=== PATIENT | male | born 1965 | race Caucasian/White ===

== ENCOUNTER 2020-12-14 10:49 | Emergency (ER) | payer OTHER, SELFPAY ==
--- NOTE | ~2020-12-14 | XR_ITS ---
XR elbow RT min 3V 12/14/2020 11:25 INDICATION: Right elbow pain and swelling PROCEDURE: 4 views right elbow COMPARISON: No prior studies for comparison. FINDINGS: Fracture, dislocation or subluxation is not identified. The soft tissues appear within norm al limits. No foreign bodies are identified. IMPRESSION: 1: NO ACUTE BONE OR JOINT ABNORMALITY IDENTIFIED. Reviewed, dictated and finalized at location A.
[2020-12-14 10:58] VITALS: BP 129/70; PULSE 65; RESP 16; TEMP 36.9; O2SAT 98
--- NOTE | 2020-12-14 11:56 | ED.GENADULT ---
HPI - General Adult General Chief complaint: Skin/Abscess/Foreign Body Stated complaint: elbow inf History of Present Illness HPI narrative: Patient wakes up this morning states that his right elbow was swollen painful to touch warm to touch. Patient states that he had a low-grade temperature he did take ibuprofen prior to coming. Patient informs me that temperature was 99.8 Related Data Allergies Allergy/AdvReac Type Severity Reaction Status Date / Time No Known Allergies Allergy Verified 12/14/20 11:11 Review of Systems Review of Systems: Narrative: CONSTITUTIONAL: Denies fever, chills, or sweats. EYES: Denies visual changes, redness, or discharge. ENT: Denies rhinorrhea, congestion, sore throat, or otalgia. CARDIOVASCULAR:Denies chest pain, palpitations, or edema. RESPIRATORY: Denies cough or dyspnea. GASTROINTESTINAL: Denies abdominal pain, nausea, vomiting, or diarrhea. GENITOURINARY: Denies dysuria or hematuria. SKIN:[Denies rash or itching. MUSCULOSKELETAL:Denies back pain, joint pain, or myalgia. Left elbow swelling painful NEUROLOGIC: Denies headache, numbness, or weakness. PSYCHIATRIC:Denies anxiety or depression PMFSH Comments At time as signature, I have reviewed and agree with nursing past medical, social, surgical and family history. Please see nursing chart for further information. There is no relevant family history pertinent to the presenting complaint. Exam Narrative: Exam Narrative: GENERAL:Well-appearing, well-nourished, and in no acute distress. HEAD:Normocephalic, atraumatic. EYES: PERRLA and EOMI. ENT: Nares clear, no rhinorrhea or epistaxis. Mucous membranes moist. NECK: Supple. CHEST: Clear to auscultation. No respiratory distress. HEART: Regular rate and rhythm. Normal peripheral pulses. ABDOMEN: Soft, nontender, nondistended, normal active bowel sounds. EXTREMITIES: decrased range of motion. left elbow with moderate edema and warmth SKIN: Warm, dry, no rash. NEURO: No focal deficits. Alert and oriented x3. Course Vital Signs Vital signs: Vital Signs Temperature 98.4 F 12/14/20 10:58 Pulse Rate 65 12/14/20 10:58 Respiratory Rate 16 12/14/20 10:58 Blood Pressure 129/70 12/14/20 10:58 Pulse Oximetry 98 12/14/20 10:58 Temperature 98.4 F 12/14/20 10:58 Pulse Rate 65 12/14/20 10:58 Respiratory Rate 16 12/14/20 10:58 Blood Pressure 129/70 12/14/20 10:58 Pulse Oximetry 98 12/14/20 10:58 Medical Decision Making Vital Signs Vital Signs: Vital Signs Temperature 98.4 F 12/14/20 10:58 Pulse Rate 65 12/14/20 10:58 Respiratory Rate 16 12/14/20 10:58 Blood Pressure 129/70 12/14/20 10:58 Pulse Oximetry 98 12/14/20 10:58 Temperature 98.4 F 12/14/20 10:58 Pulse Rate 65 12/14/20 10:58 Respiratory Rate 16 12/14/20 10:58 Blood Pressure 129/70 12/14/20 10:58 Pulse Oximetry 98 12/14/20 10:58 Discharge Plan Discharge Clinical Impression: Bursitis of elbow Qualifiers: Elbow bursitis location: unspecified Laterality: left Qualified Code(s): M70.32 - Other bursitis of elbow, left elbow Patient Disposition: Home, Self-Care Condition: Stable Instructions: Antibiotic Form, Elbow Bursitis (ED) Additional Instructions: Rest: Rest your elbow as much as possible to decrease pain and swelling. Slowly start to do more each day. Return to your daily activities as directed. Ice: Ice helps decrease swelling and pain. Ice may also help prevent tissue damage. Use an ice pack, or put crushed ice in a plastic bag. Cover it with a towel and place it on your elbow for 15 to 20 minutes, 3 to 4 times each day, as directed. Compress: Healthcare providers may wrap your arm with tape or an elastic bandage to decrease swelling. Loosen the elastic bandage if you start to lose feeling in your fingers. Elevate: Raise your elbow above the level of your heart as often as you can. This will help decrease swelling and pain. Prop your elbow o
== END 2020-12-14 12:12 | disposition home or self-care (01) ==
PROVIDERS: Emergency Provider Nurse Practitioner Family; PCP Internal Medicine
DX: M71.521 Other bursitis, not elsewhere classified, right elbow (principal)
CPT/HCPCS: 73080; 99213; G0463

== ENCOUNTER 2022-11-25 18:45 | Outpatient (CLI) | payer BC, SELFPAY ==
--- NOTE | ~2022-11-25 | XR_ITS ---
EXAMINATION: XR shoulder RT min 2V INDICATION: Right shoulder pain TECHNIQUE: Four views of the right shoulder are submitted. COMPARISON: None FINDINGS: Normal alignment. No fracture. 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 Soft tissues are unremarkable. IMPRESSION: 1. No acute osseous abnormality. Reviewed, dictated and finalized at location F.
--- NOTE | ~2022-11-25 | XR_ITS ---
EXAMINATION: XR chest 2V DATE: 11/25/2022 19:09 INDICATION: Right chest and shoulder pain TECHNIQUE: Frontal and lateral views of the chest are obtained COMPARISON: None available FINDINGS: The lungs are free of acute opacities. No pleural effusion or pneumothorax. The cardiomedia stinal silhouette is normal. There are bridging osteophytes at multiple levels in the spine, consiste nt with diffuse idiopathic skeletal hyperostosis (DISH). IMPRESSION: 1. No acute cardiopulmonary abnormality. Reviewed, dictated and finalized at location F.
== END 2022-11-25 18:46 | disposition home or self-care (01) ==
LOC: CHSIMG 18:49
PROVIDERS: PCP Family Medicine; Visit Provider Family Medicine
DX: M25.511 Pain in right shoulder (principal)
CPT/HCPCS: 71046; 73030

== ENCOUNTER 2022-12-01 15:59 | Outpatient (RCR) | payer BC, SELFPAY ==
--- NOTE | 2022-12-01 16:50 | PTOPEVAL1 ---
Assessment and note entered by Je Cornelius Evaluation Information Assessment Status Evaluation Diagnosis right shoulder pain Onset 06/21/22 Subjective Information Pt. reports on/off right shoulder pain for several years. He has began to develop numbness and tingling in the first 2 fingers of the right hand over the past 2-3 months. He describes shoulder pain in the front and back of the right shoulder. He reports that he has rare occasions of heaviness in the right arm. Pt. reports that shoulder pain can ache at night and wake him from sleep. 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 He reports that display fireworks is his hobby, but cannot lift to perform this activity. He reports that his goal is to decrease his right shoulder pain. Reported Pain Level Pain Score 3: Self Report Assessment PT Clinical Summary Pt. is a 56 year old male who enters the clinic with right shoulder pain. Pt. presentation on this date is consistent with cervical radiculopathy of the right u.e. He presents with impaired postural awareness, impaired right u.e. strength, impaired c-spine mobility and pain. Continued skilled PT is indicated in order to improve these areas to allow for improved IADL performance and comfort. Plan of Care Interventions Electrical Stimulation,Hot Pack/Cold Pack,Manual Therapy,Mechanical Traction,Neuro Re-education, Therapeutic Activities,Therapeutic Exercise PT Services Indicated Yes Treatment Frequency and 2x/week x 8 visits Duration These treatments will address the objective and functional deficits as defined above. The patient will be advanced safely and appropriately in order for the patient to progress towards his/her prior level of function. Additional exercises will be introduced and as well as a comprehensive home exercise program upon discharge, if needed, ?to ensure carryover of functional gains achieved in the clinic. This treatment plan has been reviewed and agreement upon by the patient.
--- NOTE | 2022-12-01 16:50 | OPREHPOC ---
Outpatient Therapy Plan of Care This is a Multidisciplinary Plan of Care that may contain components documented by all disciplines (PT, OT, and ST.) PT Problem 1 PT Problem #1 Knowledge Deficit PT Goal 1 Goal Pt. will be independent with a HEP and provide verbal knowledge of safe mechanics with work related tasks. Target Visit 4 PT Problem 2 PT Problem #2 Pain PT Goal 1 Goal Reduce pain in the right u.e. to 2/10 at worst with all work related activities Target Visit 8 PT Goal 2 Goal Pt. will report no numbness in the right hand. Target Visit 8 PT Problem 3 PT Problem #3 Impaired Range of Motion PT Goal 1 Goal Improve right cervical rotation to 80 degrees and right cervical sidebending to 40 degrees to imrpove visual field with driving.
== END 2022-12-29 11:16 | disposition home or self-care (01) ==
LOC: CHSPT 15:59
PROVIDERS: PCP Family Medicine; Visit Provider Family Medicine
DX: M25.511 Pain in right shoulder (principal)
CPT/HCPCS: 97012; 97014; 97110; 97150; 97161; G0283

== ENCOUNTER 2023-08-06 16:21 | Emergency (ER) | payer BC, SELFPAY ==
--- NOTE | ~2023-08-06 | XR_ITS ---
EXAM: XR wrist LT min 3V DATE: 08/06/2023 16:56 HISTORY: fall, left wrist pain and swelling. . COMPARISON: None available. FINDINGS: Normal mineralization. No fracture or dislocation. No lytic or blastic lesion. Mild scatte red degenerative changes. No erosion or periosteal change. Soft tissues within normal limits. IMPRESSION: No acute osseous finding in the left wrist. Reviewed, dictated and finalized at location K. [employer]ACHINE [employer]ENDER
[2023-08-06 16:22] VITALS: BP 152/89; PULSE 96; RESP 19; TEMP 36.6; O2SAT 97
--- NOTE | 2023-08-06 16:49 | ED.GENADULT ---
HPI - General Adult General Chief complaint: Fall Stated complaint: fall/L wrist injury Time Seen by Provider: 08/06/23 16:38 History of Present Illness HPI narrative: The patient is a 57-year-old male with no significant recent past medical history. Distant history of ulcerative colitis. He fell on the snow outside, resulting in injury to the left wrist with pain at the left wrist dorsally more on the radial rather than ulnar aspect, with mild swelling, decreased range of motion of the wrist secondary to pain. He is left-handed. No injuries elsewhere such as neck or back or other extremities. No loss of consciousness. No vomiting. No headache. No break in the skin. Related Data Allergies Allergy/AdvReac Type Severity Reaction Status Date / Time No Known Allergies Allergy Verified 12/14/20 11:11 Review of Systems Review of Systems: All systems reviewed & are unremarkable except as noted in HPI and below Constitutional: Constitutional: Denies chills, Denies excessive sweating, Denies fatigue, Denies fever(s), Denies headache(s) and Denies weakness Eyes: Eyes: Denies change in vision and Denies photophobia ENT: Denies dysphagia, Denies dizziness, Denies headache(s), Denies lip swelling, Denies nasal congestion, Denies sore throat and Denies tongue swelling Cardiovascular: Cardiovascular: Denies chest pain, Denies syncope, Denies rapid heart rate and Denies dyspnea Respiratory: Respiratory: Denies cough, Denies dyspnea and Denies wheezing Gastrointestinal: Gastrointestinal: Denies abdominal pain, Denies constipation, Denies dysphagia, Denies diarrhea, Denies nausea and Denies vomiting Genitourinary: Genitourinary: Denies hematuria, Denies dysuria, Denies urinary frequency and Denies urinary urgency Musculoskeletal: Musculoskeletal: Denies back pain, Denies myalgias, Reports arthralgias (left wrist), Reports joint swelling (left wrist) and Denies numbness Integumentary/Breasts: Skin/Breast: Denies pruritus, Denies erythema and Denies rash Neurologic: Denies confusion, Denies dizziness, Denies syncope, Denies headache(s), Denies focal weakness, Denies numbness and Denies weakness Psychiatric: Psychiatric: Denies anxiety and Denies confusion Endocrine: Endocrine: Denies excessive sweating and Denies fatigue Hematologic/Lymphatic: Hematologic/Lymphatic: Denies easy bleeding and Denies easy bruising Allergic/Immunologic: Allergic/Immunologic: Denies lip swelling, Denies tongue swelling and Denies wheezing Exam Const: General: healthy appearing, no acute distress, alert and well nourished Nutritional Appearance: well nourished Orientation/consciousness: patient oriented x3 Limitations: no limitations HENMT: Head: normal to inspection Ears: external ears normal Face/Nose/Sinus: normal facial exam Face and sinus: normal facial exam Mouth: Yes moist mucous membranes Throat: posterior oropharynx normal Eyes: Conjunctivae: conjunctivae normal Pupils: Equal, round and reactive pupils present EOM: EOMs intact bilaterally Neck: Neck: normal visual inspection and no meningeal signs Chest: Chest palpation & inspection: normal inspection of the chest and no tenderness Resp: Effort & Inspection: normal respiratory effort and not labored Auscultation: clear to auscultation bilaterally, no crackles, no rhonchi and no wheezes Cardio: Rate: regular rate Rhythm: regular rhythm Heart sounds: no murmurs GI: Inspection: non-distended GI Palp: Yes Soft to palpation, No Tenderness to palpation present (GI), No Guarding due to palpation present (GI) and No Rebound tenderness present : General: Yes no CVA tenderness Back/Spine/Pelvis: Back: no CVA tenderness Cervical Spine: No Cervical spine tenderness Thoracic/Lumbar Spine: No thoracic spinal tenderness Skin: General skin exam: normal color Rashes: no rashes Wounds: no wounds Neuro: General: patient oriented x3, moves all extremities, no meningeal signs, no focal motor
[2023-08-06] MEDS: IBUPROFEN 400 MG TABLET 800 MG PO (16:52)
[2023-08-06] MEDS: ACETAMINOPHEN 500 MG TABLET 1000 MG PO (16:53)
== END 2023-08-06 17:22 | disposition home or self-care (01) ==
LOC: CHSED 17:11
PROVIDERS: Emergency Provider Emergency Medicine; PCP Family Medicine
DX: M25.532 Pain in left wrist (principal); W00.0XXA Fall on same level due to ice and snow, initial encounter
CPT/HCPCS: 29125; 73110; 99283; A9270

== ENCOUNTER 2025-06-12 03:51 | Day surgery (SDC) | payer OTHER, SELFPAY ==
[2025-05-24 11:37] VITALS: BMI 30.7
--- OUTSIDE RECORDS SUMMARY | 2025-06-12 03:54 | XMS_ITS ---
Author Organization Unknown ENCOUNTERS Encounter Performer Location Date Diagnosis Diagnosis Status Outpatient [facility] [address] [place] [id number] Emergency [address] [address] [id number] MIN Pre Admit [address] [address] [id number] MIN Outpatient [address] [id number] MIN Outpatient [address] [id number] MIN Outpatient [address] [address] [id number] MIN *Note: Encounters from your own facility or health system may be excluded. Allergies, Adverse Reactions, Alerts Allergen Type Severity Identification Date Medications Name Date Quantity Days Supplied GPI Number
[2025-06-12 08:45] VITALS: BP 183/76; PULSE 73; RESP 18; TEMP 36.4; O2SAT 98
[2025-06-12] MEDS: LACTATED RINGERS 1,000 ML 150 ML IV CONT (08:56)
--- NOTE | 2025-06-12 09:26 | WPDANESEPPF ---
Anes - Initial Pre Proc Eval Procedure: Operation Date: 06/12/25 10:00 Proposed Procedures p Screening Colonoscopy - Rocky Lopez MD Date/Time: 06/12/25 09:26 Surgeon: Rocky Lopez MD Pre Op Diagnosis: Screening Patient Data Age: 59 Gender: M Height: 1.8 m Weight: 96.5 kg Last Vital Signs Temp 97.6 F 06/12/25 08:45 Pulse 73 06/12/25 08:45 Resp 18 06/12/25 08:45 BP 183/76 H 06/12/25 08:45 Pulse Ox 98 06/12/25 08:45 O2 Del Method Room Air 06/12/25 08:45 Allergies Allergy/AdvReac Type Severity Reaction Status Date / Time No Known Allergies Allergy Verified 06/12/25 08:44 Home Medications ?Medication ?Instructions ?Recorded ?Confirmed ?Type No Home Medications 06/12/25 06/12/25 History Patient hx anesthesia problems: none Family hx anesthesia problems: none Results Review: All pre-operative results and documents have been reviewed as part of the pre-operative evaluation. [facility] Social History Social History Smoking status: Never smoker Alcohol intake: unknown Drinks per week: 0 Alcohol use details: twice/year Substance use: never Living arrangements: with family Spiritual care concerns: No Anes - Eval Final PreProcedure Day of Procedure 06/12/25 09:26 Patient weight: overweight Lungs: normal air movement Airway: Mallampati scale class II Neurological: alert and oriented Last oral intake: >/= 8 hours ASA classification: I Emergent: no Anesthetic plan: proceed Anesthesia type and monitoring: general GIVS and standard monitoring Results Review: All pre-operative results and documents have been reviewed as part of the pre-operative evaluation. BMI 29, overall good health. Informed Consent: The patient's anesthetic plan and its attendant risks and benefits were discussed with the patient/family/POA. Questions were solicited and answers provided to the satisfaction of the patient/family/POA.
--- NOTE | 2025-06-12 09:37 | P.HP_ITS ---
History of Present Illness History of Present Illness Consent: Risks, benefits, and alternatives have been discussed and questions answered. Patient agrees to proceed with procedure. Chief complaint: Screening Narrative: Senthil Howell Jr. is a 59 year old male with last colonoscopy 2016 Review of Systems Review of Systems: All systems reviewed & are unremarkable except as noted in HPI and below PMFSH Past Medical History Medical History (Updated 06/12/25 @ 09:40 by Rocky Lopez MD) Colon cancer screening Social History Social History Smoking status: Never smoker Alcohol intake: unknown Drinks per week: 0 Alcohol use details: twice/year Substance use: never Living arrangements: with family Spiritual care concerns: No Meds Home Medications and Allergies Home Medications ?Medication ?Instructions ?Recorded ?Confirmed ?Type No Home Medications 06/12/25 06/12/25 H istory Allergies Allergy/AdvReac Type Severity Reaction Status Date / Time No Known Allergies Allergy Verified 06/12/25 08:44 Vital Signs Vital Signs - 24 hr 06/12/25 08:45 Temperature 97.6 F Pulse Rate 73 Respiratory Rate 18 Blood Pressure 183/76 H Pulse Oximetry 98 Oxygen Delivery Room Air Exam Const: General: comfortable and no acute distress HENMT: Face/Nose/Sinus: Normal nares present Eyes: General: appearance normal, both eyes and all related structures Neck: Neck: no JVD Resp: Auscultation: clear to auscultation bilaterally Cardio: Rate: regular rate Rhythm: regular rhythm GI: Inspection: non-distended GI Palp: Yes Soft to palpation Skin: General skin exam: normal color Psych: Mental Status: mental status grossly normal Assessment and Plan Assessment and plan (1) Colon cancer screening: Code(s): Z12.11 - Encounter for screening for malignant neoplasm of colon Status: Acute Assessment and Plan: colonoscopy
[2025-06-12 09:58] VITALS: BP 129/80; PULSE 71; RESP 15; O2SAT 97
[2025-06-12 10:08] VITALS: BP 124/79; PULSE 70; RESP 18; O2SAT 97
[2025-06-12 10:18] VITALS: BP 127/86; PULSE 64; RESP 17; O2SAT 97
== END 2025-06-12 10:29 | disposition home or self-care (01) ==
PROVIDERS: PCP Family Medicine; Referring Provider Family Medicine; Visit Provider Internal Medicine Gastroenterology
PROC: 0DJD8ZZ Inspection of Lower Intestinal Tract, Via Natural or Artificial Opening Endoscopic (ICD-10-PCS; CPT 45378; principal; 2025-06-12 10:00)
DX: Z12.11 Encounter for screening for malignant neoplasm of colon (principal); K57.30 Diverticulosis of large intestine without perforation or abscess without bleeding; K64.8 Other hemorrhoids
CPT/HCPCS: 45378; J2003; J2704; J7120